=== PATIENT | female | born 1935 | race Caucasian/White ===

== ENCOUNTER → 2016-11-05 | Outpatient (CLI) | payer OTHER | LOC: CIMAGING 12:22 | PROVIDERS: ATTEND Internal Medicine | DX: N89.9 Noninflammatory disorder of vagina, unspecified (principal) | CPT/HCPCS: 76856-PO ==

== ENCOUNTER → 2017-02-17 | Outpatient (CLI) | payer OTHER | LOC: CIMAGING 13:14 | PROVIDERS: ATTEND Nurse Practitioner | DX: N63.20 Unspecified lump in the left breast, unspecified quadrant (principal) | CPT/HCPCS: 76641; G0204 ==

== ENCOUNTER → 2017-02-26 | Outpatient (CLI) | payer OTHER ==
[~2017-02-26] MED LIST: BUPIVACAINE 0.5% 10 ML SDV ONE; LIDOCAINE 1% 300 MG/30 ML SDV ONE; THROMBIN (BOVINE) 5,000 UNIT VIAL TP ONE
== END ==
LOC: FIMAGING 07:03
PROVIDERS: ATTEND Nurse Practitioner
PROC: 0HBU3ZX Excision of Left Breast, Percutaneous Approach, Diagnostic (ICD-10-PCS; principal; 2017-02-26)
DX: C50.912 Malignant neoplasm of unspecified site of left female breast (principal)
CPT/HCPCS: 19083; G0206

== ENCOUNTER → 2017-03-19 | Outpatient (CLI) | payer OTHER | LOC: CIMAGING 14:34 | PROVIDERS: ATTEND Internal Medicine | DX: R05 Cough (principal) | CPT/HCPCS: 71020-PO ==

== ENCOUNTER 2017-03-21 06:47 | Day surgery (SDC) | payer OTHER ==
[~2017-03-21 06:47] MED LIST changes: -BUPIVACAINE 0.5% 10 ML SDV ONE; -LIDOCAINE 1% 300 MG/30 ML SDV ONE; -THROMBIN (BOVINE) 5,000 UNIT VIAL TP ONE; +VANCOMYCIN 1.25 GM in D5W 250 ML IV ONE; +VANCOMYCIN PHARMACY TO DOSE MISC ONE
--- NOTE | 2017-03-21 07:07 | PDHPUP ---
History & Physical Update H&P update statement: This history and physical update is based on an assessment of the patient which was completed after admission or registration (within 24 hours), but prior to the surgery/procedure. H&P update: H&P reviewed & patient examined, no change in patient's condition since H&P completed
[2017-03-21] MEDS ORDERED: LR 1,000 ML IV ONE (07:18)
[2017-03-21 07:42] VITALS: PULSE 79
--- NOTE | 2017-03-21 09:36 | POSTANESTH ---
Post Anesthetic Evaluation Cardiovascular Status: Normal, Stable Respiratory Status: Normal, Stable Level of Consciousness/Mental Status: Can Participate in Eval Pain Control: Adequate, Prn Tx Ordered Nausea/Vomiting Control: Adequate, Prn Tx Ordered Complications Possibly Related to Anesthesia: None Noted
--- NOTE | 2017-03-21 09:38 | PDANEPAE ---
ANE History of Present Illness 81 year old female for breast biopsy. ANE Past Medical History - Cardiovascular History Hx Hypertension: No Hx Arrhythmias: No Hx Chest Pain: No Hx Coronary Artery / Peripheral Vascular Disease: No Hx CHF / Valvular Disease: No Hx Palpitations: No Cardiovascular History Comment: IRREG HR- NO CONCERN. NO CP - Pulmonary History Hx COPD: Yes Hx Asthma/Reactive Airway Disease: No Hx Recent Upper Respiratory Infection: No Hx Oxygen in Use at Home: Yes O2 in Use at Home (L/minute): 2 Hx Sleep Apnea: No Sleep Apnea Screening Result - Last Documented: Negative Pulmonary History Comment: CONT OXYGEN FOR COPD. PE 2010. 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 ANEMIA. BROKEN TOOTH UPPER L SIDE. PAIN SHOULDER LEFT, LIMITED ROM - Chronic Pain History Chronic Pain: No - Surgical History Prior Surgeries: EGD/COLONOSCOPY 01/2014. BLADDER SURG/MESH SLING. HYST '04. [place] CAT[employer] ANE Review of Systems Review of Systems: - Exercise capacity METS (RN): 3 METS ANE Patient History - Allergies Allergies/Adverse Reactions: ceftriaxone sodium [From Rocephin] Allergy (Verified 03/21/17 07:22) Hives levofloxacin [From Levaquin] Allergy (Verified 03/21/17 07:22) Hives - Home Medications Home Medications: Albuterol [Proventil Inhaler HFA (*)] 1 - 2 puffs IH DAILY PRN 04/05/13 [Last Taken 03/21/17 06:00] Fluticasone/Salmeter 250/50Mcg [Advair 250/50 (*)] 1 puffs IH BID 04/05/13 [ Last Taken 03/21/17 06:00] Montelukast Sodium [Singulair 10 mg (*)] 10 mg PO HS 04/05/13 [Last Taken 06:00] Acetaminophen [Tylenol 325mg (*)] 325 mg PO DAILY PRN 03/13/17 [Last Taken 03/20] Apixaban [Eliquis] 2.5 mg PO BID 03/13/17 [Last Taken 03/18/17 19:00] Carboxymethylcellulose 1% [Refresh Celluvisc (*)] 1 drop EACHEYE DAILY PRN 03/13 [Last Taken 03/20/17] Ferrous Sulfate [Ferrous Sulf 325 MG (*)] 325 mg PO DAILY 03/13/17 [Last Taken 03/20/17] Herbals/Supplements -Info Only 1 ea PO DAILY 03/13/17 [Last Taken 03/20/17] - NPO status NPO Since - Liquids (Date): 03/20/17 NPO Since - Liquids (Time): 00:00 NPO Since - Solids (Date): 03/20/17 NPO Since - Solids (Time): 22:00 - Smoking Hx Smoking Status: Former smoker - Family Anes Hx Family Hx Anesthesia Complications: NONE ANE Labs/Vital Signs - Vital Signs Blood Pressure: 146/86 Heart Rate: 79 Respiratory Rate: 18 O2 Sat (%): 93 Height: 167.64 cm Weight: 81.647 kg ANE Anesthesia Plan Anesthesia Plan: GA w LMA
[2017-03-21] MEDS ORDERED: LIDOCAINE 2% 5 ML SDV ONE (09:44)
[2017-03-21] MEDS ORDERED: PROPOFOL/EMULSION 500 MG/50 ML BOTTLE IV ONE (09:44)
[2017-03-21] MEDS ORDERED: fentaNYL 100 MCG/2 ML INJ IVP PRN ×2 (09:48→11:18)
[2017-03-21] MEDS ORDERED: ONDANSETRON 4 MG/2 ML VIAL IVP PRN (09:48)
[2017-03-21] MEDS ORDERED: NALOXONE HCL 0.4 MG/ML INJ IVP PRN ×2 (09:48→11:18)
[2017-03-21] MEDS ORDERED: ALBUTEROL 3 ML DEYVIAL IH PRN ×2 (09:48→11:18)
[2017-03-21] MEDS ORDERED: BUPIVACAINE 0.5% 30 ML SDV ONE (10:58)
[2017-03-21] MEDS ORDERED: LABETALOL HCL 5 MG/ML 20 ML MDV IVP PRN (11:18)
--- NOTE | 2017-03-21 11:36 | POSTOPPROG ---
Post Op Note Date of Operation: 03/21/17 Surgeon: Candace Santizo Wine Pasteurizer: domonique Anesthesiologist: katherine Anesthesia: GET(General Endotracheal) Pre-op Diagnosis: L invasive ductal Post-op Diagnosis: same Indication: 81 yo with invasive ductal carcinoma Procedure: L Lump L SLN Findings: sln Inf/Abcess present in the surg proc area at time of surgery?: No EBL: Minimal Specimen(s): sln and lumpectomy
[2017-03-21] MEDS ORDERED: GLYCOPYRROLATE 0.2 MG/1 ML VIAL ONE (11:38)
[2017-03-21] MEDS ORDERED: ONDANSETRON 4 MG/2 ML VIAL ONE (11:38)
[2017-03-21] MEDS ORDERED: DEXAMETHASONE 4 MG/ML VIAL ONE (11:38)
[2017-03-21] MEDS ORDERED: HYDROCODONE/APAP 5/325 TAB PO PRN (12:54)
[2017-03-21 14:04] VITALS: BP 168/80; RESP 17; TEMP 97.4; O2SAT 94
--- NOTE | 2017-03-22 12:57 | GOP ---
[f rep st] OPERATIVE REPORT DATE OF OPERATION: 03/21/2017 SURGEON: Candace Santizo MD POLISHING MACHINE TENDER: Suzi Mcgill PA-C ANESTHESIA: General. ANESTHESIOLOGIST: Riki Cordero MD PREOPERATIVE DIAGNOSIS: Invasive ductal carcinoma, left lower inner quadrant. POSTOPERATIVE DIAGNOSIS: Invasive ductal carcinoma, left lower inner quadrant. PROCEDURE PERFORMED: 1. Left lumpectomy. 2. Left sentinel lymph node biopsy. FINDINGS: Negative sentinel lymph node. SPECIMENS: Left lumpectomy, additional margins, and left sentinel lymph node. ESTIMATED BLOOD LOSS: 10 cc. INDICATIONS: The patient is an 81-year-old with a palpable breast mass. It was biopsied and found t o be invasive ductal carcinoma. DESCRIPTION OF PROCEDURE: Patient was brought into the operating room, placed supine on the table, a nd general anesthesia was administered. Her left breast and axilla were prepped and draped in the [facility] sterile fashion. I infiltrated all sites with 0.5% Marcaine prior to making incisions. I made a n incision beneath the hair-bearing portion of her left axilla. I dissected down through the subcuta neous space. I entered the axillary space. I used the gamma probe to help identify the sentinel lym ph node. I grasped this, and it was over 1000 ex vivo. The background was very quiet. Hemostasis a chieved in the cavity. I then made an inframammary incision on the left lower inner quadrant and cre ated a superior inferior skin flap. I dissected down beyond the level of the mass. It was inked gre en anterior, red superior, yellow medial, blue inferior, orange lateral, black posterior. This was s ubmitted to pathology fresh. I swept my finger in the cavity, and there were still additional areas that felt gritty. I took an additional superior margin inked red, inferior margin inked blue, medial margin inked yellow, lateral margin inked orange, posterior margin inked black. Hemostasis was achi eved. I marked the lumpectomy cavity with clips. I closed the lumpectomy cavity with 3-0 Vicryl. I closed skin on both with 3-0 Vicryl followed by 4-0 Monocryl. Mastisol, Steri-Strips, and sterile d ressings were applied. She was awakened in the operating room, extubated, and transferred to PACU in stable condition. /[id number]/MODL
== END 2017-03-21 14:02 | disposition home or self-care (01) ==
LOC: F3N 06:47 → UNDOADMOB 06:47 → FSGY 06:47 → EDSTATUS 09:30 → FSGY 14:02
PROVIDERS: ATTEND Surgery
DX: C50.312 Malignant neoplasm of lower-inner quadrant of left female breast (principal); J41.0 Simple chronic bronchitis; D50.0 Iron deficiency anemia secondary to blood loss (chronic); I26.99 Other pulmonary embolism without acute cor pulmonale; I63.9 Cerebral infarction, unspecified; H53.469 Homonymous bilateral field defects, unspecified side; R09.02 Hypoxemia; Z99.81 Dependence on supplemental oxygen
CPT/HCPCS: 19301; 38530; 78195; A9520; J1100; J2405; J2704; J3370

== ENCOUNTER 2017-04-04 07:58 | Day surgery (SDC) | payer OTHER ==
[2017-04-04] MEDS ORDERED: LR 1,000 ML IV ONE (08:05)
--- NOTE | 2017-04-04 08:22 | PDHPUP ---
History & Physical Update H&P update statement: This history and physical update is based on an assessment of the patient which was completed after admission or registration (within 24 hours), but prior to the surgery/procedure. H&P update: H&P reviewed & patient examined (positive medial and inferior margin )
[2017-04-04] MEDS ORDERED: BUPIVACAINE 0.5% 30 ML SDV ONE (08:27)
[2017-04-04] MEDS ORDERED: LIDOCAINE 1% 300 MG/30 ML SDV ONE (08:28)
[2017-04-04] MEDS ORDERED: MIDAZOLAM 2 MG/2 ML VIAL IVP ONE (08:34)
--- NOTE | 2017-04-04 08:34 | PDANEPAE ---
ANE History of Present Illness reexcision L breast margin ANE Past Medical History - Cardiovascular History Hx Hypertension: No Hx Arrhythmias: No Hx Chest Pain: No Hx Coronary Artery / Peripheral Vascular Disease: No Hx CHF / Valvular Disease: No Hx Palpitations: No Cardiovascular History Comment: IRREG HR- NO CP - Pulmonary History Hx COPD: Yes Hx Asthma/Reactive Airway Disease: Yes Hx Recent Upper Respiratory Infection: No Hx Oxygen in Use at Home: Yes Hx Sleep Apnea: No Sleep Apnea Screening Result - Last Documented: Negative Pulmonary History Comment: 04/02/2017 DEVELOPED PRODUCTIVE COUGH YELLOW/GREEN AFEBRILE PT. INSTRUCTED TO NOTIFY SURGEON. STATES WITH HER COPD GETS THIS OFTEN. CONT OXYGEN FOR COPD. PE 2010. 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 ANEMIA. BROKEN TOOTH UPPER L SIDE. PAIN SHOULDER LEFT, LIMITED ROM - Chronic Pain History Chronic Pain: No - Surgical History Prior Surgeries: LT BREAST LUMPECTOMY WITH SLN 02/2017. EGD/COLONOSCOPY 2013. BLADDER SURG/MESH SLING. HYST '04. [place] [employer] ANE Review of Systems Review of Systems: - Exercise capacity METS (RN): 3 METS ANE Patient History - Allergies Allergies/Adverse Reactions: ceftriaxone sodium [From Rocephin] Allergy (Verified 03/21/17 07:22) Hives levofloxacin [From Levaquin] Allergy (Verified 03/21/17 07:22) Hives - Home Medications Home medications: home medication list seen and reviewed Home Medications: Albuterol [Proventil Inhaler HFA (*)] 1 - 2 puffs IH DAILY PRN 04/05/13 [Last Taken 03/21/17 06:00] Fluticasone/Salmeter 250/50Mcg [Advair 250/50 (*)] 1 puffs IH BID 04/05/13 [ Last Taken 03/21/17 06:00] Montelukast Sodium [Singulair 10 mg (*)] 10 mg PO HS 04/05/13 [Last Taken 06:00] Acetaminophen [Tylenol 325mg (*)] 325 mg PO DAILY PRN 03/13/17 [Last Taken 03/20] Apixaban [Eliquis] 2.5 mg PO BID 03/13/17 [Last Taken 03/18/17 19:00] Carboxymethylcellulose 1% [Refresh Celluvisc (*)] 1 drop EACHEYE DAILY PRN 03/13 [Last Taken 03/20/17] Ferrous Sulfate [Ferrous Sulf 325 MG (*)] 325 mg PO DAILY 03/13/17 [Last Taken 04/04/17 06:15] Herbals/Supplements -Info Only 1 ea PO DAILY 03/13/17 [Last Taken 03/20/17] - NPO status NPO Status: no food or drink >8 hours - Anes Hx Anes Hx: no prior problems - Smoking Hx Smoking Status: Former smoker - Family Anes Hx Family Anes Hx: none Family Hx Anesthesia Complications: NONE ANE Labs/Vital Signs - Vital Signs Height: 167.64 cm Weight: 81.647 kg ANE Physical Exam - Airway Neck exam: FROM Mallampati Score: Class 3 - Pulmonary Pulmonary: no respiratory distress - Cardiovascular Cardiovascular: irregularly irregular - ASA Status ASA Status: III ANE Anesthesia Plan Total IV Anesthesia: Yes
[2017-04-04] MEDS ORDERED: LIDOCAINE 2% 100 MG/5 ML SYR ONE (09:29)
[2017-04-04] MEDS ORDERED: PROPOFOL/EMULSION 500 MG/50 ML BOTTLE IV ONE (09:29)
[2017-04-04] MEDS ORDERED: NALOXONE HCL 0.4 MG/ML INJ IVP PRN (09:57)
[2017-04-04] MEDS ORDERED: ALBUTEROL 3 ML DEYVIAL IH PRN (09:57)
[2017-04-04] MEDS ORDERED: DEXAMETHASONE 4 MG/ML VIAL IVP PRN (09:57)
[2017-04-04] MEDS ORDERED: HYDROCODONE/APAP 5/325 TAB PO PRN (09:57)
[2017-04-04] MEDS ORDERED: OXYCODONE/APAP 5/325 TAB PO PRN (09:57)
[2017-04-04] MEDS ORDERED: MEPERIDINE 25 MG/ML SYR IVP PRN (09:57)
[2017-04-04] MEDS ORDERED: fentaNYL 100 MCG/2 ML INJ IVP PRN (09:57)
[2017-04-04] MEDS ORDERED: ONDANSETRON 4 MG/2 ML VIAL IVP PRN (09:57)
[2017-04-04] MEDS ORDERED: ACETAMINOPHEN 500 MG TAB PO PRN (09:57)
[2017-04-04] MEDS ORDERED: HYDROmorphONE/DILAUDID 1 MG/ML INJ IVP PRN (09:57)
--- NOTE | 2017-04-04 09:57 | POSTANESTH ---
Post Anesthetic Evaluation Cardiovascular Status: Similar to Pre-Op Cond Respiratory Status: Similar to Pre-op Cond. Level of Consciousness/Mental Status: Can Participate in Eval Pain Control: Adequate, Prn Tx Ordered Nausea/Vomiting Control: Adequate, Prn Tx Ordered Complications Possibly Related to Anesthesia: None Noted
--- NOTE | 2017-04-04 10:09 | POSTOPPROG ---
Post Op Note Date of Operation: 04/04/17 Surgeon: Candace Santizo Anesthesiologist: joey Anesthesia: IV Sedation Pre-op Diagnosis: invasive ductal Post-op Diagnosis: same Indication: 81 yo with invasive ductal Procedure: re excision l breast medial and inferior margins Findings: no unusual Inf/Abcess present in the surg proc area at time of surgery?: No EBL: Minimal Specimen(s): yellow medial blue inferior
[2017-04-04 11:00] VITALS: TEMP 98.2
[2017-04-04 11:02] VITALS: PULSE 70; RESP 14; O2SAT 98
[2017-04-04 11:38] VITALS: BP 138/73
--- NOTE | 2017-04-06 19:29 | GOP ---
[f rep st] OPERATIVE REPORT DATE OF OPERATION: 04/04/2017 SURGEON: Candace Santizo MD ANESTHESIA: IV general. ANESTHESIOLOGIST: Dr. Dima Marroquin PREOPERATIVE DIAGNOSIS: Invasive ductal carcinoma of the left breast, lower inner quadrant. POSTOPERATIVE DIAGNOSIS: Invasive ductal carcinoma of the left breast, lower inner quadrant. PROCEDURE PERFORMED: Re-excision left breast medial and inferior margins. FINDINGS: No unusual findings. SPECIMENS: Yellow medial, blue inferior. ESTIMATED BLOOD LOSS: Minimal. INDICATIONS: The patient is an 81-year-old woman who underwent lumpectomy and sentinel lymph node fo r invasive ductal carcinoma. She had a positive margin. She presents for reexcision. DESCRIPTION OF PROCEDURE: Patient was brought into the operating room, placed supine on the table, a nd IV sedation was performed. Her left breast was prepped and draped in the usual sterile fashion. I infiltrated all sites with 0.5% Marcaine prior to making incisions. I made an incision over a prev ious scar. I evacuated the seroma cavity. I grasped inferior tissue with an Allis. I inked the new margin blue. I grasped medial tissue with an Allis and inked the new margin yellow. The clips were still in place. I was unable to close a deep layer due to the fatty tissue. I closed the skin with 3-0 Vicryl followed by 4-0 Monocryl. Mastisol, Steri-Strips, and a sterile dressing were applied. She was awakened in the operating room, and transferred to PACU in stable condition. /[id number]/MODL
== END 2017-04-04 11:25 | disposition home or self-care (01) ==
LOC: FSGY 07:58
PROVIDERS: ATTEND Surgery
PROC: 0HBU0ZZ Excision of Left Breast, Open Approach (ICD-10-PCS; principal; 2017-04-04 09:45)
DX: C50.812 Malignant neoplasm of overlapping sites of left female breast (principal); Z17.0 Estrogen receptor positive status [ER+]; I69.398 Other sequelae of cerebral infarction; H54.61 Unqualified visual loss, right eye, normal vision left eye; E78.5 Hyperlipidemia, unspecified; J44.9 Chronic obstructive pulmonary disease, unspecified; Z99.81 Dependence on supplemental oxygen; Z86.711 Personal history of pulmonary embolism
CPT/HCPCS: J2001; J2704; J3370

== ENCOUNTER → 2017-06-24 | Outpatient (CLI) | payer OTHER ==
[~2017-06-24] MED LIST changes: +IOPAMIDOL (ISOVUE-300) 100 ML BTL ONE; -VANCOMYCIN 1.25 GM in D5W 250 ML IV ONE; -VANCOMYCIN PHARMACY TO DOSE MISC ONE
== END ==
LOC: CIMAGING 09:29
PROVIDERS: ATTEND Specialist
DX: R31.0 Gross hematuria (principal); K57.30 Diverticulosis of large intestine without perforation or abscess without bleeding; K44.9 Diaphragmatic hernia without obstruction or gangrene; I70.0 Atherosclerosis of aorta
CPT/HCPCS: 74178; Q9967

== ENCOUNTER → 2018-03-30 | Outpatient (CLI) | payer OTHER | LOC: CIMAGING 09:55 | PROVIDERS: ATTEND Internal Medicine | DX: Z12.31 Encounter for screening mammogram for malignant neoplasm of breast (principal); Z80.3 Family history of malignant neoplasm of breast ==

== ENCOUNTER → 2018-04-09 | Outpatient (CLI) | payer OTHER | LOC: CIMAGING 12:54 | PROVIDERS: ATTEND Internal Medicine | DX: R92.0 Mammographic microcalcification found on diagnostic imaging of breast (principal) ==